=== PATIENT | male | born 1970 | race Two or more races ===

== ENCOUNTER 2021-09-30 07:23 | Emergency (ER) | payer SELFPAY ==
[2021-09-30 07:25] VITALS: BP 121/66; PULSE 68; RESP 18; TEMP 36.6; O2SAT 98; BMI 25.8
[2021-09-30 08:44] VITALS: BP 111/64; PULSE 60; RESP 16; TEMP 36.8; O2SAT 97
--- NOTE | 2021-09-30 08:46 | ED_ITS ---
HPI - General Adult General Chief complaint: General Medical Stated complaint: hemorrhoids Source: patient Mode of arrival: ambulatory Limitations: no limitations History of Present Illness HPI narrative: 50-year-old male with history of hemorrhoids presents to the ED hemorrhoids pain . Patient states last night while defecating he had pain while defecating once he was done he felt a lump in his anus which was painful. Patient states history of hemorrhoid. Patient had slight blood on tissue. Patient states he put hemorrhoid back into the ED this morning to be evaluated. Patient denies any abdominal pain, nausea, vomiting, flank pain, or any rectal bleeding since incident last night. Patient denies any recent trauma. Related Data Previous Rx's Medication Instructions Recorded docusate sodium 100 mg capsule 100 mg PO BID 7 Days #14 cap 09/30/21 (Colace) hydrocortisone acetate 25 mg 25 mg HI BID #12 ea 09/30/21 rectal suppository (Anusol-HC) Allergies Allergy/AdvReac Type Severity Reaction Status Date / Time No Known Allergies Allergy Verified 09/30/21 09:05 Review of Systems Review of Systems: Yes all other systems are reviewed and are negative Constitutional: Constitutional: Reports as per HPI and Reports no additional constitutional complaints Eyes: Eyes: Reports as per HPI and Reports no additional eye complaints ENT: Reports system reviewed and no additional complaints, except as documented and Reports as per HPI Cardiovascular: Cardiovascular: Reports as per HPI and Reports no additional cardiovascular complaints Respiratory: Respiratory: Reports as per HPI and Reports no additional respiratory complaints Gastrointestinal: Gastrointestinal: Reports as per HPI and Reports no additional gastrointestinal complaints Comments: Hemorrhoid Genitourinary: Genitourinary: Reports no additional male genitourinary complaints and Reports as per HPI Musculoskeletal: Musculoskeletal: Reports no additional musculoskeletal complaints and Reports as per HPI Integumentary/Breasts: Skin/Breast: Reports system reviewed and no additional complaints, except as docu and Reports as per HPI Neurologic: Reports system reviewed and no additional complaints, except as documented and Reports as per HPI Psychiatric: Psychiatric: Reports no additional psychiatric complaints and Reports as per HPI Endocrine: Endocrine: Reports no additional endocrine complaints and Reports as per HPI COUNT INCLUDES THE [facility] Social History Social History Advance Directives: No Physical Exam Vital Signs: Vital Signs: Last Vital Signs Temp 98.3 F 09/30/21 08:44 Pulse 60 09/30/21 08:44 Resp 16 09/30/21 08:44 BP 111/64 09/30/21 08:44 Pulse Ox 97 09/30/21 08:44 Body Mass Index 25.8 Const: General: cooperative, healthy appearing, comfortable, no acute distress, well developed, alert, awake and Physically active Orientation/consciousness: patient oriented x3 HENMT: Head: Yes normal to inspection, Yes No palpable skull fracture present, Yes normocephalic, Yes atraumatic and No abrasion Eyes: General: appearance normal, both eyes and all related structures Neck: Neck: Yes normal visual inspection, Yes full ROM, Yes no lymphadenopathy, Yes no meningeal signs, Yes trachea midline, Yes supple, No anterior neck swelling and No tender Resp: Effort & Inspection: normal respiratory effort and able to speak in complete sentences Auscultation: clear to auscultation bilaterally Cardio: Jugular venous distension: no JVD Heart sounds: S1 normal heart sound present and S2 normal heart sound present GI: Other: Rectal exam negative for any external hemorrhoids. Positive for internal hemorrhoids on on palpation. Negative any fissures. Negative for any blood on rectal exam. Stool is brown. Negative for black stool. Negative for melena. Negative for anal abscess. Inspection: Yes normal to inspection and No abdominal wall ecchymosis Palpation (GI): Soft to palpation, not firm, nontender, no guarding and not rigid : General: No CVA tenderness and Yes no CVA tenderness Back/Spine/Pelvis: Back: no CVA tenderness, No CVA tenderness and No back tenderness Skin: General skin exam: no rashes or lesions noted and elasticity normal Neuro: General: patient oriented x3, gait normal, no meningeal signs and CN's II-XI intact bilaterally Cranial nerves: Yes CN's II-XII intact bilaterally Extrem: General: Yes normal to inspection and Yes full ROM Psych: Appearance: grossly normal, well kempt and not disheveled Course Course Course Narrative: No further intervention needed. Reevaluation(s) Reevaluation #1: Patient will be discharged with Anusol and Colace. Patient informed to follow-up with surgery. Patient not have any thrombosed thrombosed hemorrhoid. Time: 09:04 Medical Decision Making MDM Narrative Medical decision making narrative: Hemorrhoids Discharge Plan Discharge Clinical Impression: Hemorrhoids Patient Disposition: Home, Self-Care Instructions: Hemorrhoids (ED) Additional Instructions: Regrese al servicio de urgencias de inmediato si tiene dolor abdominal, n?useas, v?mitos, v?mitos con rebekah, sangrado rectal, heces negras, debilidad, mareos, dolor por hemorroides o cualquier otro s?ntoma que le preocupe. Eliseo un seguimiento con el m?dico de atenci?n primaria y el cirujano referido para evaluar las hemorroides. Prescriptions: New docusate sodium [Colace] 100 mg capsule 100 mg PO BID 7 Days Qty: 14 RF: 0 hydrocortisone acetate [Anusol-HC] 25 mg suppository 25 mg HI BID Qty: 12 RF: 0 Referrals: Jarett Bishop MD [Physician] - 2 days (hemorrhoids) Interventions: ED Discharge Assessment Last Done: 09/30/21 09:28 Discharge Date/Time: 09/30/21 09:29 Print Language: Hungarian
== END 2021-09-30 09:29 | disposition home or self-care (01) ==
PROVIDERS: Emergency Provider Emergency Medicine Emergency Medical Services
DX: K64.9 Unspecified hemorrhoids (principal); Z79.899 Other long term (current) drug therapy
CPT/HCPCS: 99283; 99284